=== PATIENT | male | born 1985 | race Caucasian/White ===

== ENCOUNTER 2021-12-02 08:15 | Inpatient (IN) | payer BC ==
[~2021-12-02] VITALS: Ht 175.3 cm; Wt 80.4 kg
[2021-12-02] MEDS ORDERED: ESCITALOPRAM OXALATE 10 MG TAB (LEXAPRO) PO ONE (09:00)
[2021-12-02] MEDS ORDERED: LEVO50TA5 PO (09:25)
[2021-12-02] MEDS ORDERED: BUSP15TA47 PO (09:25)
[2021-12-02] MEDS ORDERED: LEXA1TAB2 PO (09:25)
[2021-12-02] MEDS ORDERED: SERO50TA PO (09:25)
[2021-12-02] MEDS ORDERED: LEVO-95 PO (12:58)
[2021-12-02] MEDS ORDERED: SYNT25TA PO (12:58)
[2021-12-02] MEDS ORDERED: VITA200012 PO (13:00)
[2021-12-02] MEDS ORDERED: HOME MED LIST COMPLETE! XX SCH (13:05)
[2021-12-02] MEDS ORDERED: IBUPROFEN 400MG TAB PO PRN (15:25)
[2021-12-02] MEDS ORDERED: MAALOX 30 ML SUSP *UDC PO PRN (15:25)
[2021-12-02] MEDS ORDERED: MOM 30ML SUSPENSION UDC PO PRN (15:25)
[2021-12-02] MEDS ORDERED: OLANZapine ORAL DISINTEGRATING TAB 5MG PO PRN (15:25)
[2021-12-02 18:44] VITALS: BP 146/86
[2021-12-02] MEDS ORDERED: busPIRone 5 MG TAB PO ONE (21:00)
[2021-12-02] MEDS ORDERED: QUEtiapine FUMARATE 50MG TAB PO SCH (21:00)
[2021-12-02] MEDS: QUEtiapine FUMARATE 50MG TAB PO SCH (21:23)
[2021-12-03] MEDS: LEVOTHYROXINE 150MCG TABLET (0.15MG) PO SCH (05:22)
[2021-12-03] MEDS: LEVOTHYROXINE 25MCG TABLET (0.025MG) PO SCH (05:22)
[2021-12-03] MEDS ORDERED: LEVOTHYROXINE 150MCG TABLET (0.15MG) PO SCH (06:00)
[2021-12-03] MEDS ORDERED: LEVOTHYROXINE 25MCG TABLET (0.025MG) PO SCH (06:00)
[2021-12-03 06:52] VITALS: BP 145/79
[2021-12-03] MEDS ORDERED: INFLUENZA QUADRIVALENT PF VACCINE 0.5ML SYRINGE IM ONE (09:00)
[2021-12-03] MEDS: NICOTINE 14 MG/24 HR TRANSDERMAL TD SCH (09:00)
[2021-12-03] MEDS ORDERED: hydrOXYzine 50 MG TAB PO PRN (11:20)
[2021-12-03] MEDS: VENLAFAXINE **XR** 37.5 MG CAPSULE PO SCH (11:48)
[2021-12-03 18:10] VITALS: BP 137/84
[2021-12-03 19:52] LABS: BASO % 0.1 % (0.0-1.0); EOS % 0.1 % (0.0-3.0); HEMATOCRIT 42.7 % (42.0-52.0); LYMPH % 25.7 % (24.0-44.0); MEAN CORPUSCULAR HEMOGLOBIN 29.8 pg (27.0-33.0); MEAN CORPUSCULAR HGB CONC 35.1 g/dl (32.0-36.5); MEAN CORPUSCULAR VOLUME 84.7 fl (80.0-96.0); MONO # 0.5 10^3/uL (0.0-0.8); MONO % 6.9 % (2.0-8.0); NEUTROPHILS # 5.2 10^3/uL (1.5-8.5); NEUTROPHILS % 66.9 % (36.0-66.0); PLATELET COUNT, AUTOMATED 209 10^3/uL (150-450); RED BLOOD COUNT 5.04 10^6/uL (4.30-6.10); WHITE BLOOD COUNT 7.8 10^3/uL (4.0-10.0)
[2021-12-03 20:06] LABS: HEMOGLOBIN A1c 4.8 %
[2021-12-03 20:14] LABS: CK-MB VALUE MASS 1.2 NG/ML (<3.6); MB/CK RELATIVE INDEX 1.67 (< OR =4)
[2021-12-03 20:23] LABS: ALBUMIN 4.4 GM/DL (3.2-5.2); ALT/SGPT 24 U/L (12-78); BILIRUBIN,TOTAL 0.4 MG/DL (0.2-1.0); BLOOD UREA NITROGEN 16 MG/DL (7-18); CALCIUM LEVEL 9.3 MG/DL (8.5-10.1); CARBON DIOXIDE LEVEL 30 MEQ/L (21-32); CHLORIDE LEVEL 105 MEQ/L (98-107); CREATININE FOR GFR 1.01 MG/DL (0.70-1.30); FREE THYROXINE INDEX 3.3 % (1.4-3.8); GLOMERULAR FILTRATION RATE > 60.0 (>60); GLUCOSE, FASTING 84 MG/DL (70-100); MAGNESIUM LEVEL 2.3 MG/DL (1.8-2.4); POTASSIUM SERUM 3.7 MEQ/L (3.5-5.1); SODIUM LEVEL 142 MEQ/L (136-145); T UPTAKE 35 % (33-40); THYROXINE (T4) 9.4 UG/DL (4.5-12.0); TOTAL PROTEIN 7.8 GM/DL (6.4-8.2)
[2021-12-03] MEDS: QUEtiapine FUMARATE 50MG TAB PO SCH (21:00)
[2021-12-03] MEDS ORDERED: QUEtiapine FUMARATE 50MG TAB PO ONE (21:00)
[2021-12-04] MEDS: LEVOTHYROXINE 150MCG TABLET (0.15MG) PO SCH (06:00)
[2021-12-04 06:46] VITALS: BP 132/73
[2021-12-04] MEDS: VENLAFAXINE **XR** 37.5 MG CAPSULE PO SCH (08:17)
[2021-12-04] MEDS: NICOTINE 14 MG/24 HR TRANSDERMAL TD SCH (08:18)
[2021-12-04] MEDS: busPIRone 5 MG TAB PO SCH ×2 (12:36→21:19)
[2021-12-04 16:49] VITALS: BP 123/73
[2021-12-04] MEDS: QUEtiapine FUMARATE 50MG TAB PO SCH (21:19)
[2021-12-05] MEDS: LEVOTHYROXINE 150MCG TABLET (0.15MG) PO SCH (05:45)
[2021-12-05] MEDS: LEVOTHYROXINE 25MCG TABLET (0.025MG) PO SCH (05:46)
[2021-12-05 06:51] VITALS: BP 116/71
[2021-12-05] MEDS: busPIRone 5 MG TAB PO SCH ×2 (09:14→21:13)
[2021-12-05] MEDS: VENLAFAXINE **XR** 37.5 MG CAPSULE PO SCH (09:15)
[2021-12-05] MEDS ORDERED: traZODone 50 MG TAB PO PRN (09:25)
[2021-12-05] MEDS: PROPRANOLOL 10 MG TAB PO SCH ×3 (10:34→21:15)
[2021-12-05 16:43] VITALS: BP 132/83
[2021-12-06] MEDS: LEVOTHYROXINE 150MCG TABLET (0.15MG) PO SCH (05:45)
[2021-12-06 06:21] VITALS: BP 129/72
[2021-12-06] MEDS: busPIRone 5 MG TAB PO SCH ×2 (08:24→20:25)
[2021-12-06] MEDS: PROPRANOLOL 10 MG TAB PO SCH ×3 (08:24→20:25)
[2021-12-06] MEDS: VENLAFAXINE **XR** 37.5 MG CAPSULE PO SCH (08:24)
[2021-12-06] MEDS ORDERED: RAMELTEON 8 MG TAB (ROZEREM) PO PRN (09:05)
[2021-12-06 16:41] VITALS: BP 127/84
[2021-12-07] MEDS: LEVOTHYROXINE 25MCG TABLET (0.025MG) PO SCH (05:42)
[2021-12-07] MEDS: LEVOTHYROXINE 150MCG TABLET (0.15MG) PO SCH (05:42)
[2021-12-07 06:40] VITALS: BP 128/84
[2021-12-07] MEDS: busPIRone 5 MG TAB PO SCH ×2 (08:20→20:22)
[2021-12-07] MEDS: PROPRANOLOL 10 MG TAB PO SCH ×3 (08:20→20:21)
[2021-12-07] MEDS: VENLAFAXINE **XR** 75MG CAPSULE PO SCH (08:20)
[2021-12-07 18:00] VITALS: BP 137/85
[2021-12-07] MEDS ORDERED: MIRTAZAPINE 7.5MG PER 1/2 TABLET PO SCH (21:00)
[2021-12-08] MEDS: LEVOTHYROXINE 150MCG TABLET (0.15MG) PO SCH (05:59)
[2021-12-08 06:47] VITALS: BP 144/83
[2021-12-08 08:30] VITALS: BP 144/83
[2021-12-08] MEDS: busPIRone 5 MG TAB PO SCH (08:30)
[2021-12-08] MEDS: VENLAFAXINE **XR** 75MG CAPSULE PO SCH (08:30)
[2021-12-08] MEDS: PROPRANOLOL 10 MG TAB PO SCH (08:30)
[2021-12-08] MEDS ORDERED: BUSP15TA47 PO (09:20)
[2021-12-08] MEDS ORDERED: MIRT-62 PO (09:20)
[2021-12-08] MEDS ORDERED: VENL75CA47 PO (09:20)
[2021-12-08] MEDS ORDERED: PROP10TA56 PO (09:20)
== END 2021-12-08 12:30 | disposition home or self-care (01) | DRG 751 ==
LOC: M ED 08:18 → M ED INP 15:23 → M PSY 17:15
PROVIDERS: ADMIT Student in an Organized Health Care Education/Training Program; ATTEND Student in an Organized Health Care Education/Training Program
DX: F33.2 Major depressive disorder, recurrent severe without psychotic features (principal); F41.1 Generalized anxiety disorder; Z81.8 Family history of other mental and behavioral disorders; R45.851 Suicidal ideations; E03.9 Hypothyroidism, unspecified; G25.71 Drug induced akathisia; T43.505A Adverse effect of unspecified antipsychotics and neuroleptics, initial encounter; Z79.899 Other long term (current) drug therapy; Z56.89 Other problems related to employment

== ENCOUNTER → 2022-09-30 | Outpatient (CLI) | payer BC ==
[~2022-09-30] MED LIST: BUSP15TA47 PO; LEVO-95 PO; LEVO50TA5 PO; LEXA1TAB2 PO; MIRT-62 PO; PROP10TA56 PO; SERO50TA PO; SYNT25TA PO; VENL75CA47 PO; VITA200012 PO
[2022-09-30 15:25] LABS: BASO % 0.6 % (0.0-1.0); EOS # 0.1 10^3/uL (0.0-0.5); EOS % 1.4 % (0.0-3.0); HEMATOCRIT 43.4 % (42.0-52.0); HEMOGLOBIN 14.1 g/dl (13.5-17.5); LYMPH # 1.4 10^3/uL (1.5-5.0); LYMPH % 26.7 % (24.0-44.0); MEAN CORPUSCULAR HEMOGLOBIN 30.5 pg (27.0-33.0); MEAN CORPUSCULAR HGB CONC 32.5 g/dl (32.0-36.5); MEAN CORPUSCULAR VOLUME 93.7 fl (80.0-96.0); MONO # 0.4 10^3/uL (0.0-0.8); MONO % 8.3 % (2.0-8.0); NEUTROPHILS # 3.2 10^3/uL (1.5-8.5); NEUTROPHILS % 62.6 % (36.0-66.0); PLATELET COUNT, AUTOMATED 212 10^3/uL (150-450); RED BLOOD COUNT 4.63 10^6/uL (4.30-6.10); WHITE BLOOD COUNT 5.1 10^3/uL (4.0-10.0)
[2022-09-30 16:10] LABS: ALBUMIN 4.1 GM/DL (3.2-5.2); ALT/SGPT 54 U/L (12-78); BILIRUBIN,TOTAL 0.3 MG/DL (0.2-1.0); BLOOD UREA NITROGEN 15 MG/DL (7-18); CALCIUM LEVEL 9.1 MG/DL (8.5-10.1); CARBON DIOXIDE LEVEL 30 MEQ/L (21-32); CHLORIDE LEVEL 104 MEQ/L (98-107); CREATININE FOR GFR 1.22 MG/DL (0.70-1.30); FREE T4 0.97 NG/DL (0.76-1.46); GLOMERULAR FILTRATION RATE > 60.0 (>60); GLUCOSE, FASTING 94 MG/DL (70-100); POTASSIUM SERUM 4.1 MEQ/L (3.5-5.1); SODIUM LEVEL 137 MEQ/L (136-145); TOTAL PROTEIN 7.6 GM/DL (6.4-8.2)
== END ==
LOC: M LAB 14:50
PROVIDERS: ATTEND Nurse Practitioner Adult Health
DX: E03.9 Hypothyroidism, unspecified (principal)

== ENCOUNTER → 2022-11-17 | Outpatient (CLI) | payer BC ==
[2022-11-17 10:12] LABS: FREE T4 1.15 NG/DL (0.89-1.76)
[2022-11-17 10:13] LABS: THYROID STIMULATING HORMONE 19.148 uIU/ML (0.55-4.78)
== END ==
LOC: M LAB 09:06
PROVIDERS: ATTEND Nurse Practitioner Adult Health
DX: E03.9 Hypothyroidism, unspecified (principal)

== ENCOUNTER → 2023-01-04 | Outpatient (CLI) | payer BC ==
[2023-01-04 15:52] LABS: FREE T4 1.33 NG/DL (0.89-1.76); THYROID STIMULATING HORMONE 11.31 uIU/ML (0.55-4.78)
== END ==
LOC: M LAB 13:22
PROVIDERS: ATTEND Nurse Practitioner Adult Health
DX: E03.9 Hypothyroidism, unspecified (principal); Z79.890 Hormone replacement therapy

== ENCOUNTER → 2023-02-16 | Outpatient (CLI) | payer BC ==
[2023-02-16 16:40] LABS: THYROID STIMULATING HORMONE 0.692 uIU/ML (0.55-4.78)
[2023-02-16 16:41] LABS: FREE T4 1.57 NG/DL (0.89-1.76)
== END ==
LOC: M LAB 13:01
PROVIDERS: ATTEND Nurse Practitioner Adult Health
DX: E03.9 Hypothyroidism, unspecified (principal)

== ENCOUNTER → 2023-02-17 | Outpatient (CLI) | payer BC | LOC: M PLAIMG 07:06 | PROVIDERS: ATTEND Nurse Practitioner Adult Health | DX: S53.492A Other sprain of left elbow, initial encounter (principal); Y93.9 Activity, unspecified; Y92.9 Unspecified place or not applicable ==

== ENCOUNTER 2023-03-24 01:28 | Emergency (ER) | payer BC ==
[2023-03-24 01:29] VITALS: BP 146/82
[2023-03-24 03:17] LABS: BLOOD UREA NITROGEN 15 MG/DL (9-23); CALCIUM LEVEL 8.6 MG/DL (8.5-10.1); CARBON DIOXIDE LEVEL 25 MMOL/L (20-31); CHLORIDE LEVEL 104 MMOL/L (98-107); CREATININE FOR GFR 1.03 MG/DL (0.70-1.30); GLOMERULAR FILTRATION RATE > 60.0 (>60); GLUCOSE, FASTING 140 MG/DL (60-100); LITHIUM LEVEL 0.33 MMOL/L (0.60-1.20); POTASSIUM SERUM 3.2 MMOL/L (3.5-5.1); SODIUM LEVEL 138 MMOL/L (136-145)
[2023-03-24 03:22] LABS: BASO % 0.5 % (0.0-1.0); EOS # 0.1 10^3/uL (0.0-0.5); EOS % 0.8 % (0.0-3.0); HEMATOCRIT 42.6 % (42.0-52.0); HEMOGLOBIN 14.7 g/dl (13.5-17.5); LYMPH # 2.3 10^3/uL (1.5-5.0); LYMPH % 27.9 % (24.0-44.0); MEAN CORPUSCULAR HEMOGLOBIN 29.6 pg (27.0-33.0); MEAN CORPUSCULAR HGB CONC 34.5 g/dl (32.0-36.5); MEAN CORPUSCULAR VOLUME 85.7 fl (80.0-96.0); MONO # 0.5 10^3/uL (0.0-0.8); NEUTROPHILS # 5.4 10^3/uL (1.5-8.5); NEUTROPHILS % 64.3 % (36.0-66.0); PLATELET COUNT, AUTOMATED 215 10^3/uL (150-450); RED BLOOD COUNT 4.97 10^6/uL (4.30-6.10); WHITE BLOOD COUNT 8.3 10^3/uL (4.0-10.0)
== END 2023-03-24 04:00 | disposition home or self-care (01) ==
LOC: M ED 01:28
DX: G43.909 Migraine, unspecified, not intractable, without status migrainosus (principal); E03.9 Hypothyroidism, unspecified; F32.A Depression, unspecified; F41.9 Anxiety disorder, unspecified; Z79.890 Hormone replacement therapy; Z79.899 Other long term (current) drug therapy

== ENCOUNTER → 2023-08-08 | Outpatient (CLI) | payer BC ==
[~2023-08-08] MED LIST changes: -MIRT-62 PO; +MIRT-88 PO
== END ==
LOC: M LAB 15:30
PROVIDERS: ATTEND Psychiatry & Neurology Child & Adolescent Psychiatry
DX: F33.2 Major depressive disorder, recurrent severe without psychotic features (principal)

== ENCOUNTER → 2024-03-20 | Outpatient (CLI) | payer BC | LOC: M LAB 07:22 | PROVIDERS: ATTEND Psychiatry & Neurology Child & Adolescent Psychiatry | DX: F33.2 Major depressive disorder, recurrent severe without psychotic features (principal) ==

== ENCOUNTER → 2024-05-14 | Outpatient (CLI) | payer BC | LOC: M LAB 07:22 | PROVIDERS: ATTEND Psychiatry & Neurology Child & Adolescent Psychiatry | DX: F33.2 Major depressive disorder, recurrent severe without psychotic features (principal) ==

== ENCOUNTER → 2024-06-29 | Outpatient (CLI) | payer BC | LOC: M LAB 14:47 | PROVIDERS: ATTEND Psychiatry & Neurology Child & Adolescent Psychiatry | DX: F33.2 Major depressive disorder, recurrent severe without psychotic features (principal) ==

== ENCOUNTER → 2024-09-20 | Outpatient (CLI) | payer SELFPAY | LOC: M LAB 12:18 | PROVIDERS: ATTEND Psychiatry & Neurology Child & Adolescent Psychiatry | DX: F33.2 Major depressive disorder, recurrent severe without psychotic features (principal) ==

== ENCOUNTER → 2024-11-19 | Outpatient (CLI) | payer BC ==
[2024-11-19 07:09] LABS: BASO % 0.4 % (0.0-1.0); EOS # 0.1 10^3/uL (0.0-0.5); EOS % 1.5 % (0.0-3.0); HEMATOCRIT 39.2 % (42.0-52.0); HEMOGLOBIN 13.7 g/dl (13.5-17.5); LYMPH # 1.7 10^3/uL (1.5-5.0); LYMPH % 36.2 % (24.0-44.0); MEAN CORPUSCULAR HEMOGLOBIN 29.8 pg (27.0-33.0); MEAN CORPUSCULAR HGB CONC 34.9 g/dl (32.0-36.5); MEAN CORPUSCULAR VOLUME 85.2 fl (80.0-96.0); MONO # 0.4 10^3/uL (0.0-0.8); NEUTROPHILS # 2.5 10^3/uL (1.5-8.5); NEUTROPHILS % 53.5 % (36.0-66.0); PLATELET COUNT, AUTOMATED 190 10^3/uL (150-450); WHITE BLOOD COUNT 4.7 10^3/uL (4.0-10.0)
[2024-11-19 07:40] LABS: ALBUMIN 3.7 G/DL (3.2-5.2); ALKALINE PHOSPHATASE 53 U/L (40-129); ALT/SGPT 32 U/L (7.0-40); AST/SGOT 18 U/L (<34); BILIRUBIN,TOTAL 0.6 MG/DL (0.3-1.2); BLOOD UREA NITROGEN 13 MG/DL (9-23); CALCIUM LEVEL 10.1 MG/DL (8.5-10.1); CARBON DIOXIDE LEVEL 30 MMOL/L (20-31); CHLORIDE LEVEL 107 MMOL/L (98-107); CHOLESTEROL LEVEL 152 MG/DL (<200); CREATININE FOR GFR 1.11 MG/DL (0.70-1.30); GLOMERULAR FILTRATION RATE > 60.0 (>60); GLUCOSE, FASTING 91 MG/DL (60-100); SODIUM LEVEL 143 MMOL/L (136-145); TOTAL PROTEIN 6.6 G/DL (5.7-8.2); TRIGLYCERIDES LEVEL 45 MG/DL (<150)
[2024-11-19 07:43] LABS: FREE T4 1.44 NG/DL (0.89-1.76); THYROID STIMULATING HORMONE 0.614 uIU/ML (0.55-4.78)
== END ==
LOC: M LAB 06:47
PROVIDERS: ATTEND Nurse Practitioner Adult Health
DX: E03.9 Hypothyroidism, unspecified (principal); Z13.220 Encounter for screening for lipoid disorders; Z13.0 Encounter for screening for diseases of the blood and blood-forming organs and certain disorders involving the immune mechanism

== ENCOUNTER → 2025-01-14 | Outpatient (CLI) | payer BC | LOC: M PLAIMG 11:50 | PROVIDERS: ATTEND Nurse Practitioner Adult Health | DX: M25.511 Pain in right shoulder (principal) ==

== ENCOUNTER → 2025-06-27 | Outpatient (CLI) | payer BC ==
[2025-06-27 14:18] LABS: FREE T4 1.7 NG/DL (0.89-1.76)
== END ==
LOC: M LAB 13:03
PROVIDERS: ATTEND Nurse Practitioner Adult Health
DX: E03.9 Hypothyroidism, unspecified (principal)